=== PATIENT | female | born 1950 | race Caucasian/White ===

== ENCOUNTER 2024-08-27 11:07 | Emergency (ER) | payer MEDICARE, MEDICAID ==
[~2024-08-27] VITALS: Ht 154.9 cm; Wt 54.0 kg
[2024-08-27 11:14] VITALS: BP 198/91; RESP 16; TEMP 98.8; O2SAT 98
[2024-08-27 11:16] VITALS: PULSE 89; O2SAT 100
[2024-08-27] MEDS ORDERED: IBUP-2029 MT (13:47)
== END 2024-08-27 13:55 | disposition home or self-care (01) ==
LOC: ER 11:07
DX: S00.83XA Contusion of other part of head, initial encounter (principal); I10 Essential (primary) hypertension; W18.39XA Other fall on same level, initial encounter; Y93.89 Activity, other specified; Y92.89 Other specified places as the place of occurrence of the external cause; Y99.8 Other external cause status
CPT/HCPCS: 70486; 99284